=== PATIENT | male | born 1970 | race Caucasian/White ===

== ENCOUNTER 2020-09-09 06:38 | Emergency (ER) | payer BC ==
[~2020-09-09] VITALS: Ht 182.9 cm; Wt 72.7 kg
[2020-09-09 08:53] LABS: BASO % 0.3 % (0.0-2.0); GRAN # 7.7 (1.4-6.5); GRAN % 82.4 % (42.2-75.2); HEMATOCRIT 41.3 % (42.0-52.0); HEMOGLOBIN 14.2 g/dl (13.5-18.0); LYMPH # 0.6 (1.2-3.4); LYMPH % 6.6 % (20.0-51.0); MEAN CELL VOLUME 88 fl (80.0-100.0); MEAN CORPUSCULAR HEMOGLOBIN 30 pg (27.0-31.0); MEAN CORPUSCULAR HGB CONC 34 g/dl (33.0-37.0); MONO % 10.3 % (1.7-9.3); PLATELET COUNT 230 K/mm3 (130-400); RED BLOOD COUNT 4.69 M/mm3 (4.20-5.60); REDCELL DISTRIBUTION WIDTH-CV 12.2 % (11.5-14.5)
[2020-09-09 09:05] LABS: ALBUMIN 4.5 gm/dL (3.5-5.0); BILIRUBIN,TOTAL 0.9 mg/dL (0.0-1.0); CALCIUM 9.3 mg/dL (8.4-10.2); CREATININE, serum 0.97 (0.66-1.25); POTASSIUM 3.7 mmol/L (3.4-5.0); TOTAL PROTEIN 8.2 gm/dL (6.4-8.2)
[2020-09-09 09:22] VITALS: TEMP 98.9
[2020-09-09 10:05] VITALS: BP 115/61; PULSE 91
== END 2020-09-09 10:05 | disposition home or self-care (01) ==
LOC: COL.ER 06:38
PROVIDERS: Emergency Medicine
DX: R50.9 Fever, unspecified (principal); R00.0 Tachycardia, unspecified; E87.1 Hypo-osmolality and hyponatremia; E86.0 Dehydration; E87.8 Other disorders of electrolyte and fluid balance, not elsewhere classified; R94.5 Abnormal results of liver function studies; Z20.822 Contact with and (suspected) exposure to COVID-19
CPT/HCPCS: J7030